=== PATIENT | male | born 1990 | race African-American/Black ===

== ENCOUNTER 2018-03-12 09:34 | Emergency (ER) | payer OTHER ==
[2018-03-12 10:08] LABS: Absolute Lymphocytes (CBC) 1.1 K/uL (0.7-4.9); Absolute Monocytes 0.5 K/uL (0.1-1.3); Absolute Neutrophil 6.7 K/uL (1.8-8.0); Basophils % 0.5 % (0-1.3); Eosinophils % 0.6 % (0-4.4); Hematocrit 43.8 % (39.6-49.0); Lymphocytes % 13.3 % (15.3-44.8); Monocytes % 6.3 % (3.3-12.3); RBC Red Blood Cell Count 5.12 M/uL (4.33-5.43)
[2018-03-12 10:18] LABS: Protime INR 1.07
--- NOTE | 2018-03-12 10:23 | RAD REPORT ---
EXAM DESCRIPTION: RAD - Ankle Right 3 View - 03/12/2018 10:14 am CLINICAL HISTORY: Pain;Swelling COMPARISON: No comparisons FINDINGS: Moderate soft tissue swelling is seen along the lateral malleolus. No acute fracture or di slocation seen.
[2018-03-12 10:36] LABS: ALT/SGPT 23 U/L (12-78); AST/SGOT 17 U/L (15-37); Albumin 4.1 g/dL (3.4-5.0); Alkaline Phosphatase 70 U/L (45-117); BUN Blood Urea Nitrogen 6 mg/dL (7-18); Bicarbonate 28 mmol/L (21-32); Bilirubin Direct 0.1 mg/dL (0-0.2); Bilirubin Total 0.4 mg/dL (0.2-1.0); Glucose Level 89 mg/dL (74-106); Potassium 4.5 mmol/L (3.5-5.1); Protein, Total 7.1 g/dL (6.4-8.2); Sodium Level 143 mmol/L (136-145)
[2018-03-12 10:36] LABS: Barbiturates NEGATIVE (NEGATIVE); Benzodiazepines NEGATIVE (NEGATIVE); Cocaine NEGATIVE (NEGATIVE); METHAMPHETAM NEGATIVE (NEGATIVE); Methadone NEGATIVE (NEGATIVE); Opiates NEGATIVE (NEGATIVE); Phencyclidine NEGATIVE (NEGATIVE); THC Cannibis NEGATIVE (NEGATIVE)
[2018-03-12 10:49] LABS: Urine Blood NEGATIVE (NEG); Urine Glucose NEGATIVE (NEG); Urine Protein NEGATIVE (NEG); Urine Specific Gravity 1.015 (1.005-1.030); Urine pH 8.5 (5.0-7.0)
[2018-03-12] MEDS ORDERED: ACETYLCYSTEINE IV SCH (11:00)
[2018-03-12] MEDS ORDERED: D5W IV SCH (11:00)
--- NOTE | 2018-03-12 12:20 | EDPHYS ---
Physician Documentation [facility] Name: Jadon Rosales Age: 28 yrs Sex: Male : 1990 Arrival Date: 03/12/2018 Time: 09:38 Bed 14 Private MD: ED Physician Erlin Baker HPI: 03/12 12:11 This 28 yrs old Black Male presents to ER via EMS with complaints of Ankle Injury. kb 12:11 The patient presents with pain, that is acute. The complaints affect the right ankle. kb Onset: The symptoms/episode began/occurred this morning, at 07:30. Context: The problem was sustained outdoors, at a sports field or court, resulted from tripped while playing [employer], The mechanism of injury is unknown. Associated signs and symptoms: Pertinent positives: swelling, Pertinent negatives: calf tenderness, fever, nausea, numbness, rash, tingling, vomiting, warmth, weakness. Modifying factors: The symptoms are alleviated by nothing, the symptoms are aggravated by weight bearing, movement. Severity of symptoms: At their worst the symptoms were moderate, in the emergency department the symptoms are unchanged. The patient has not experienced similar symptoms in the past. The patient has not recently seen a physician. 12:14 The patient presents to the emergency department after a known overdose, that was kb accidental. Context: Method: the patient has a confirmed or suspected ingestion, of acetaminophen, Time: today, at 08:00, Extent: the patient had a total ingestion of approximately 7800 mg(s), the OD/poisoning occurred at [facility]. Associated signs and symptoms: The patient has no apparent associated signs or symptoms. Severity of symptoms: At their worst the symptoms were moderate in the emergency department the symptoms are unchanged. Pt reports he hurt his right ankle while playing basketball, went to medical and they gave him tylenol to take for pain. "I took all of the packets they gave me because my ankle hurt really bad." Pt was given 12 packets of tylenol containing 2 - 325mg tablets each. Total amount ingested 7800mg. Pt denies suicidal ideations. Just took the medication to treat the pain. Historical: - Allergies: 10:06 No Known Allergies; ls4 - PSHx: 10:06 None; ls4 - Immunization history:: Adult Immunizations up to date. - Social history:: Smoking status: Patient/guardian denies using tobacco, never smoked. - Ebola Screening: : Patient negative for fever greater than or equal to 101.5 degrees Fahrenheit, and additional compatible Ebola Virus Disease symptoms Patient denies exposure to infectious person Patient denies travel to an Ebola-affected area in the 21 days before illness onset No symptoms or risks identified at this time. ROS: 12:08 Constitutional: Negative for fever, chills, and weight loss, Eyes: Negative for injury, kb pain, redness, and discharge, ENT: Negative for injury, pain, and discharge, Neck: Negative for injury, pain, and swelling, Cardiovascular: Negative for chest pain, palpitations, and edema, Respiratory: Negative for shortness of breath, cough, wheezing, and pleuritic chest pain, Abdomen/GI: Negative for abdominal pain, nausea, vomiting, diarrhea, and constipation, Back: Negative for injury and pain, : Negative for injury, bleeding, discharge, and swelling, Skin: Negative for injury, rash, and discoloration, Neuro: Negative for headache, weakness, numbness, tingling, and seizure. 12:08 MS/extremity: Positive for injury or acute deformity, decreased range of motion, pain, swelling, tenderness, of the right ankle. Exam: 12:11 Constitutional: This is a well developed, well nourished patient who is awake, alert, kb and in no acute distress. Head/Face: Normocephalic, atraumatic. Eyes: Pupils equal round and reactive to light, extra-ocular motions intact. Lids and lashes normal. Conjunctiva and sclera are non-icteric and not injected. Cornea within normal limits. Periorbital areas with no swelling, redness, or edema. ENT: Nares patent. No nasal discharge, no septal abnormalities noted. Tympanic membranes are normal and external auditory canals are clear. Oropharynx with no redness, swelling, or masses, exudates, or evidence of obstruction, uvula midline. Mucous membranes moist. Neck: Trachea midline, no thyromegaly or masses palpated, and no cervical lymphadenopathy. Supple, full range of motion without nuchal rigidity, or vertebral point tenderness. No Meningismus. Chest/axilla: Normal chest wall appearance and motion. Nontender with no deformity. No lesions are appreciated. Cardiovascular: Regular rate and rhythm with a normal S1 and S2. No gallops, murmurs, or rubs. Normal PMI, no JVD. No pulse deficits. Respiratory: Lungs have equal breath sounds bilaterally, clear to auscultation and percussion. No rales, rhonchi or wheezes noted. No increased work of breathing, no retractions or nasal flaring. Abdomen/GI: Soft, non-tender, with normal bowel sounds. No distension or tympany. No guarding or rebound. No evidence of tenderness throughout. Skin: Warm, dry with normal turgor. Normal color with no rashes, no lesions, and no evidence of cellulitis. Neuro: Awake and alert, GCS 15, oriented to person, place, time, and situation. Cranial nerves II-XII grossly intact. Motor strength 5/5 in all extremities. Sensory grossly intact. Cerebellar exam normal. Normal gait. 12:11 Musculoskeletal/extremity: Extremities: grossly normal except: noted in the right ankle: decreased ROM, pain, swelling, tenderness, ROM: limited active range of motion due to pain, in the right ankle, Circulation is intact in all extremities. Sensation intact. Weight bearing: is unable to bear weight. Vital Signs: 09:38 BP 131 / 95; Pulse 67; Resp 16; Temp 98.6(O); Pulse Ox 100% on R/A; Pain 7/10; ls4 09:52 Weight 68.04 kg; kb 10:45 BP 134 / 82; Pulse 68; Resp 16; Temp 98.6(O); Pulse Ox 99% on R/A; Pain 7/10; ls4 11:45 BP 141 / 87; Pulse 76; Resp 16; Pulse Ox 99% on R/A; Pain 5/10; ls4 12:45 BP 148 / 91; Pulse 71; Resp 16; Pulse Ox 100% on R/A; Pain 3/10; ls4 13:30 BP 148 / 90; Pulse 72; Resp 16; Temp 98.6(O); Pulse Ox 99% on R/A; Pain 3/10; ls4 MDM: 09:38 Patient medically screened. kb 12:06 Data reviewed: vital signs, nurses notes. Data interpreted: Pulse oximetry: on room air kb is 99 %. Interpretation: normal. Counseling: I had a detailed discussion with the patient and/or guardian regarding: the historical points, exam findings, and any diagnostic results supporting the discharge/admit diagnosis, lab results, radiology results, the need to transfer to another facility, for higher level of care. Physician consultation: Discussed pt's H\\T\\P, condition and diagnostics with Dr Kincaid. Accepts pt for transfer to ICU. 03/12 09:39 Order name: Acetaminophen; Complete Time: 10:47 kb 03/12 09:39 Order name: Basic Metabolic Panel; Complete Time: 10:47 kb 03/12 09:39 Order name: CBC with Diff; Complete Time: 10:36 kb 03/12 09:39 Order name: ETOH Level; Complete Time: 10:34 kb 03/12 09:39 Order name: Hepatic Function; Complete Time: 10:47 kb 03/12 09:39 Order name: PT-INR; Complete Time: 10:36 kb 03/12 09:39 Order name: Ptt, Activated; Complete Time: 10:36 kb 03/12 09:39 Order name: Salicylate; Complete Time: 10:57 kb 03/12 09:39 Order name: Urine Drug Screen; Complete Time: 10:47 kb 03/12 09:39 Order name: Ankle Right 3 View XRAY; Complete Time: 10:34 kb 03/12 10:20 Order name: Urine Dipstick--Ancillary (enter results); Complete Time: 10:52 eb 03/12 11:55 Order name: Tylenol Level; Complete Time: 12:50 eb 03/12 09:39 Order name: EKG; Complete Time: 09:40 kb 03/12 09:39 Order name: EKG - Nurse/Tech; Complete Time: 10:28 kb 03/12 09:39 Order name: IV Saline Lock; Complete Time: 10:28 kb 03/12 09:39 Order name: Labs collected and sent; Complete Time: 10:28 kb 03/12 09:39 Order name: Urine Dipstick-Ancillary (obtain specimen); Complete Time: 10:28 kb 03/12 09:59 Order name: Misc. Order; Complete Time: 10:28 kb 03/12 11:06 Order name: Short Leg Splint; Complete Time: 12:39 kb Administered Medications: 10:40 Drug: Acetylcysteine 150 mg/kg Route: IV; Rate: 200 ml/hr; Site: right antecubital; ls4 11:43 Follow up: IV Status: Completed infusion; IV Intake: 250ml ls4 11:43 Follow up: Response: No adverse reaction ls4 12:46 Drug: morphine 4 mg Route: IVP; Site: right antecubital; ls4 13:15 Follow up: Response: No adverse reaction; Marked relief of symptoms ls4 12:46 Drug: Zofran 4 mg Route: IVP; Site: right antecubital; ls4 13:15 Follow up: Response: No adverse reaction; Marked relief of symptoms ls4 13:14 Drug: Acetylcysteine 50 mg/kg Route: IV; Rate: 125 ml/hr; Site: right antecubital; ls4 13:30 Follow up: BP 148 / 90; Pulse 72 bpm; Resp 16 bpm; Temp 98.6 Oral; Pulse Ox 99% RA; ls4 Pain 3/10 Adult 13:31 Follow up: Response: No adverse reaction ls4 13:48 Follow up: IV Status: Infusion continued upon transfer; IV Intake: 125ml ls4 Disposition: 16:11 Co-signature as Attending Physician, Kenia Medina RN I agree with the assessment and kdr plan of care. Disposition: 03/12/18 12:19 Transfer ordered to [facility]. Diagnosis are Sprain of ankle, Tylenol Overdose, Elevated tylenol level. - Reason for transfer: Higher level of care. - Accepting physician is [facility]. - Condition is Stable. - Problem is new. - Symptoms are unchanged. Signatures: Dispatcher [employer] EDDeann Vilchis, DIONNE-C DIONNE-Erlin Lutz MD MD kdr Stewart, Lisa, RN RN ls4 Corrections: (The following items were deleted from the chart) 13:47 12:19 03/12/2018 12:19 Transfer ordered to [facility]. Diagnosis is Sprain of ls4 ankle; Tylenol Overdose; Elevated tylenol level. Reason for transfer: Higher level of care. Accepting physician is [facility]. Condition is Stable. Problem is new. Symptoms are unchanged. kb
--- NOTE | 2018-03-12 12:20 | ER ---
Nurse's Notes [facility] Name: Jadon Rosales Age: 28 yrs Sex: Male : 1990 Arrival Date: 03/12/2018 Time: 09:38 Bed 14 Private MD: Diagnosis: Sprain of ankle;Tylenol Overdose;Elevated tylenol level Presentation: 03/12 10:01 Presenting complaint: PT TOOK 12 PACKAGES OF TYLEONOL AFTER ROLLING HIS ANKLES THIS ls4 MORNING. Transition of care: [facility]. Onset of symptoms was March 12, 2018. Risk Assessment: Do you want to hurt yourself or someone else? Patient reports no desire to harm self or others. Initial Sepsis Screen: Does the patient meet any 2 criteria? No. Patient's initial sepsis screen is negative. Does the patient have a suspected source of infection? No. Patient's initial sepsis screen is negative. Care prior to arrival: None. 10:01 Method Of Arrival: EMS: [facility] ls4 10:01 Acuity: TESSY 2 ls4 10:01 Acuity: TESSY 2 ls4 Triage Assessment: 10:06 General: Appears in no apparent distress. uncomfortable, Behavior is calm, cooperative. ls4 Pain: Complains of pain in right ankle Pain currently is 7 out of 10 on a pain scale. Quality of pain is described as aching, sharp, Pain began suddenly. Neuro: Cardiovascular: No deficits noted. Respiratory: No deficits noted. GI: No deficits noted. : No deficits noted. Derm: No deficits noted. Musculoskeletal: Bony deformity noted of right ankle Swelling present in right ankle. Historical: - Allergies: 10:06 No Known Allergies; ls4 - PSHx: 10:06 None; ls4 - Immunization history:: Adult Immunizations up to date. - Social history:: Smoking status: Patient/guardian denies using tobacco, never smoked. - Ebola Screening: : Patient negative for fever greater than or equal to 101.5 degrees Fahrenheit, and additional compatible Ebola Virus Disease symptoms Patient denies exposure to infectious person Patient denies travel to an Ebola-affected area in the 21 days before illness onset No symptoms or risks identified at this time. Screenin:38 Abuse screen: Denies threats or abuse. Denies injuries from another. Nutritional ls4 screening: No deficits noted. Tuberculosis screening: No symptoms or risk factors identified. Fall Risk None identified. Assessment: 10:20 General: Appears in no apparent distress. Neuro: No deficits noted. Cardiovascular: No ls4 deficits noted. Respiratory: No deficits noted. GI: No deficits noted. : No deficits noted. Derm: No deficits noted. Musculoskeletal: No deficits noted. 11:20 Reassessment: No changes from previously documented assessment. Patient is alert, ls4 oriented x 3, equal unlabored respirations, skin warm/dry/pink. 12:20 Reassessment: No changes from previously documented assessment. Patient is alert, ls4 oriented x 3, equal unlabored respirations, skin warm/dry/pink. 13:33 Reassessment: No changes from previously documented assessment. Patient is alert, ls4 oriented x 3, equal unlabored respirations, skin warm/dry/pink. TRANSFER EMS HERE FOR PATIENT. REPORT GIVEN TO [facility] . QUESTIONS ANSWERED. Vital Signs: 09:38 BP 131 / 95; Pulse 67; Resp 16; Temp 98.6(O); Pulse Ox 100% on R/A; Pain 7/10; ls4 09:52 Weight 68.04 kg; kb 10:45 BP 134 / 82; Pulse 68; Resp 16; Temp 98.6(O); Pulse Ox 99% on R/A; Pain 7/10; ls4 11:45 BP 141 / 87; Pulse 76; Resp 16; Pulse Ox 99% on R/A; Pain 5/10; ls4 12:45 BP 148 / 91; Pulse 71; Resp 16; Pulse Ox 100% on R/A; Pain 3/10; ls4 13:30 BP 148 / 90; Pulse 72; Resp 16; Temp 98.6(O); Pulse Ox 99% on R/A; Pain 3/10; ls4 ED Course: 09:38 Patient arrived in ED. ls4 09:38 [facility] kb 09:38 Erlin Baker MD is Attending Physician. kb 09:38 No provider procedures requiring assistance completed. Initial lab(s) drawn, by vt, ls4 sent to lab. Urine collected: clean catch specimen. Inserted saline lock: 20 gauge in right antecubital area, using aseptic technique. Blood collected. 09:38 Arm band placed on left wrist. ls4 09:38 Patient has correct armband on for positive identification. Placed in gown. Bed in low ls4 position. Call light in reach. Side rails up X 1. Valuables SECURITY AT BEDSIDE. . 09:39 Kenia Medina, RN is Primary Nurse. ls4 09:51 EKG done, by care administrative tech. reviewed by Chavez CARVAJAL. dt2 10:03 Triage completed. ls4 10:14 Ankle Right 3 View XRAY In Process Unspecified. EDMS 10:42 POISON CONTROL OF TYLENOL INTAKE. POISON CONTROL RECOMENDS HOLDING MUCOMYST UNTIL 4 ls4 HOUR TYLENOL LEVEL IS DRAWN AND GIVE MUCOMYST ONLY IF GREATER THAN 150 MCG. CHAVEZ Parson NOTIFIED, ORDERED TO HOLD MUCOMYST UNTIL 4 HOUR TYLENOL LEVEL COMES BACK. 11:08 initiated a transfer with Gianni from [facility]. eb 11:25 Liberty from [facility] called to get information on the inmate for transfer/. eb 11:43 administrative approval given by Milly Chinchilla RN/ Dr. Kincaid has accepted the patient in eb transfer/ patient is going to 403 bed 1/ report given by Chavez MCLAUGHLIN to Kian MOREIRA at [facility]. 12:39 Orthoglass splint: Posterior short lleg splint applied on right leg. mh5 13:35 IV INTACT FOR TRANSFER. ls4 Administered Medications: 10:40 Drug: Acetylcysteine 150 mg/kg Route: IV; Rate: 200 ml/hr; Site: right antecubital; ls4 11:43 Follow up: IV Status: Completed infusion; IV Intake: 250ml ls4 11:43 Follow up: Response: No adverse reaction ls4 12:46 Drug: morphine 4 mg Route: IVP; Site: right antecubital; ls4 13:15 Follow up: Response: No adverse reaction; Marked relief of symptoms ls4 12:46 Drug: Zofran 4 mg Route: IVP; Site: right antecubital; ls4 13:15 Follow up: Response: No adverse reaction; Marked relief of symptoms ls4 13:14 Drug: Acetylcysteine 50 mg/kg Route: IV; Rate: 125 ml/hr; Site: right antecubital; ls4 13:30 Follow up: BP 148 / 90; Pulse 72 bpm; Resp 16 bpm; Temp 98.6 Oral; Pulse Ox 99% RA; ls4 Pain 3/10 Adult 13:31 Follow up: Response: No adverse reaction ls4 13:48 Follow up: IV Status: Infusion continued upon transfer; IV Intake: 125ml ls4 Intake: 11:43 IV: 250ml; Total: 250ml. ls4 13:48 IV: 125ml; Total: 375ml. ls4 Outcome: 12:19 ER care complete, transfer ordered by MD. joe 13:34 Transferred by [facility] . to [facility], Transfer ls4 form completed. 13:34 Condition: stable 13:47 Patient left the ED. ls4 Signatures: Dispatcher [employer] EDMS Chavez Hobson, Mima Martinez 5 Grisel Marr Danielle 2 Kenia Medina, RN RN ls4
[2018-03-12] MEDS ORDERED: ONDANSETRON 4 MG/2 ML VIAL ONE (12:51)
[2018-03-12] MEDS ORDERED: MORPHINE 4 MG/ML SYR ONE (12:51)
[2018-03-12 13:54] VITALS: TEMP 98.6
[2018-03-12 14:00] VITALS: BP 148/90; O2SAT 99
--- NOTE | 2018-03-12 16:15 | EKG ---
Test Date: 2018-03-12 Test Time: 09:45:53 Manager [employer]: DESI MEASUREMENT RESULTS: Intervals: Rate: 64 TN: 112 QRSD: 90 QT: 380 QTc: 392 [place]: P: TN: 112 QRS: 73 T: 40 INTERPRETIVE STATEMENTS: Normal sinus rhythm Normal ECG Compared to ECG 03/03/2016 17:28:31 Short TN interval no longer present Electronically Signed On 03-12-18 16:14:25 GOVERNMENT SALES MANAGER by Pierce Fajardo
== END 2018-03-12 13:47 | disposition short-term general hospital (02) ==
LOC: ER 09:34
DX: S93.401A Sprain of unspecified ligament of right ankle, initial encounter (principal); T39.1X1A Poisoning by 4-Aminophenol derivatives, accidental (unintentional), initial encounter; W01.0XXA Fall on same level from slipping, tripping and stumbling without subsequent striking against object, initial encounter; Y93.67 Activity, basketball; Y92.149 Unspecified place in prison as the place of occurrence of the external cause
CPT/HCPCS: 36415; 80048; 80076; 80307; 80320; 80329; 81003; 85025; 85610; 85730; 93005; 96365; 96366; 96375; 99285; J0132; J2405; J7060